=== PATIENT | male | born 1945 | race Caucasian/White ===

== ENCOUNTER 2017-02-13 08:01 | Day surgery (SDC) | payer OTHER ==
[~2017-02-13] VITALS: Ht 188 cm; Wt 103.0 kg
[~2017-02-13 08:01] MED LIST: ASPIRIN81 M2 PO; ATENOLOL25 MG PO; CALCIUM 500 MG1 EACH PO; CARDIZEM CD,CA240 MG PO; CENTRUM SILVER1 EAC3 PO; CO Q-10300 MG PO; DESONIDE15 GM TP; EFUDEX 5% CREAM25 GM TP; FISH OIL 1,2001 EAC4 PO; HYDROCHLOROTHIA25 MG PO; JANUMET 50/11 TABLET PO; LANTUS 3 M100 UNITS1 SC; LIDEX 0.05% CRE60 GM TP; MICARDIS80 MG PO; MILK THISTLE500 MG PO; NOVOLOG PE100 UNITS/ SC; SYNTHROID125 MCG PO; TRESIBA FL100 UNIT/1 SC; TRICOR145 MG PO; VITAMIN B12-FO1 EACH SL; VITAMIN D32000 UNI1 PO; VITAMIN E400 UNIT PO; XARELTO20 MG PO; [UNRECOGNIZED DRUG - OTHER] PO
[2017-02-13 08:51] VITALS: BP 135/72
[2017-02-13 08:57] LABS: ANION GAP 9 MEQ/L (2-14); CHLORIDE 102 MEQ/L (99-109); POTASSIUM 3.8 MEQ/L (3.7-5.4); SAMPLE HEMOLYSIS CHECK 0; SAMPLE ICTERIC CHECK 0; SAMPLE LIPEMIA CHECK 0; SODIUM 137 MEQ/L (136-147)
[2017-02-13 09:03] LABS: GFR ESTIMATE (CALCULATED) > 59 mL/min/; GLUCOSE 184 mg/dL (70-99); UREA NITROGEN (BUN) 16 mg/dL (9-23)
[2017-02-13 09:24] LABS: POINT-OF-CARE METER ID UU13113694; POINT-OF-CARE USER ID AHSRSCSLC11
[2017-02-13 11:06] LABS: POINT-OF-CARE METER ID UU13113675
[2017-02-13 11:20] VITALS: BP 142/69
[2017-02-13 11:53] VITALS: BP 130/70
== END 2017-02-13 11:57 | disposition home or self-care (01) ==
LOC: SDC 08:01
PROVIDERS: Internal Medicine
DX: H35.341 Macular cyst, hole, or pseudohole, right eye (principal); I10 Essential (primary) hypertension; I48.91 Unspecified atrial fibrillation; Z79.82 Long term (current) use of aspirin; D86.9 Sarcoidosis, unspecified; B39.9 Histoplasmosis, unspecified; E11.9 Type 2 diabetes mellitus without complications; E03.9 Hypothyroidism, unspecified; F32.9 Major depressive disorder, single episode, unspecified; Z80.8 Family history of malignant neoplasm of other organs or systems; Z83.3 Family history of diabetes mellitus; Z82.3 Family history of stroke
CPT/HCPCS: 80048; 82948; J0690; J3300